=== PATIENT | female | born 1990 ===

== ENCOUNTER 2017-01-08 18:50 | Emergency (ER) | payer OTHER ==
[~2017-01-08] VITALS: Ht 170.2 cm; Wt 95.1 kg
[2017-01-08 18:59] VITALS: BP 147/103; PULSE 82; TEMP 37.4; O2SAT 95; Ht 170.2 cm; Wt 95.1 kg
== END 2017-01-08 20:14 | disposition left against medical advice (07) ==
LOC: C.EDB 18:52
DX: R11.10 Vomiting, unspecified (principal)